=== PATIENT | female | born 1955 | race African-American/Black ===

== ENCOUNTER 2020-01-14 22:59 | Emergency (ER) | payer OTHER ==
[~2020-01-14] VITALS: Ht 160 cm; Wt 68.0 kg
[2020-01-14 23:46] LABS: ABSOLUTE NEUTROPHILS 2.8 thou/uL (1.4-8.2); BASOPHILS 1.1 % (0.0-2.0); EOSINOPHILS 1.4 % (0.0-3.0); HEMATOCRIT 38.9 % (37.0-47.0); HEMOGLOBIN 12.6 gm/dL (12.0-15.0); LYMPHOCYTES 38.7 % (24.0-44.0); MCH 27.9 pg (26.0-34.0); MCHC 32.4 g/dL (28.0-37.0); MCV 86.1 fL (80.0-100.0); MONOCYTES 8.6 % (1.0-8.0); PLATELET COUNT 276 thou/uL (150-400); POLYS 50.2 % (36.0-66.0); RBC 4.52 mil/uL (4.20-5.00); RDW 14.7 % (10.5-14.5); WBC 5.6 thou/uL (4.0-11.0)
[2020-01-14 23:50] LABS: CREATININE 1.1 mg/dL (0.6-1.0); MAGNESIUM 2.3 mg/dL (1.8-2.4); POTASSIUM 3.9 mmol/L (3.5-5.1)
[2020-01-15 00:25] LABS: URINE BILIRUBIN NEGATIVE (Negative); URINE BLOOD NEGATIVE (Negative); URINE CLARITY CLEAR; URINE COLOR YELLOW; URINE GLUCOSE-RANDOM* NEGATIVE (Negative); URINE KETONES NEGATIVE (Negative); URINE NITRITE-REFLEX NEGATIVE (Negative); URINE PROTEIN (DIPSTICK) NEGATIVE (Negative); URINE SPECIFIC GRAVITY 1.025 (1.005-1.035); URINE UROBILINOGEN 0.2 E.U./dl (0.2-1.0)
[2020-01-15 00:27] LABS: URINE LEUKOCYTES-REFLEX 1+ (Negative)
[2020-01-15 00:34] LABS: BACTERIA-REFLEX 1-9 Few /HPF (None Seen); CASTS None Seen /LPF (None Seen); CRYSTALS None Seen /LPF (None Seen); MUCUS 0-3 Light strn/LPF (None Seen); SQUAMOUS 0-3 Few /LPF (0-3); URINE RBC 0-2 Rare /HPF (0-2)
[2020-01-15 01:06] VITALS: BP 194/79
--- NOTE | 2020-01-15 07:42 | EKG ---
[facility] [place] [place] [address] ELECTROCARDIOGRAM REPORT Name: ELIO LYMAN Room #: DEP [facility]#: [id number] Admission: 01/14/20 Attend Phys: Discharge: 01/15/20 Date of : 57 Report #: [id number] THIS REPORT FOR: cc: NO FAMILY PHYSICIAN or PCP NO FAMILY PHYSICIAN or PCP Santos Linda MD ~ THIS REPORT FOR: //name// [facility] ED Test Date: 2020-01-14 Test Time: 23:20:23 Pat Name: ELIO LYMAN Department: Room: Gender: F [employer]: : [id number] Requested By: Junaid Grewal Order Number: [id number] MD: Santos Linda Measurements Intervals [place] Rate: 91 P: 57 LA: 175 QRS: 61 QRSD: 110 T: 215 QT: 367 QTc: 452 Interpretive Statements Sinus rhythm LVH with IVCD and secondary repol abnrm Anterior ST elevation, probably due to LVH No previous ECG available for comparison Electronically Signed On 01-15-2020 7:41:27 CDT by Santos Linda [email or web address] <ELECTRONICALLY SIGNED> By: Santos Linda MD 01/15/20 0741 19 19 Santos Linda MD /EPI
== END 2020-01-15 01:07 | disposition home or self-care (01) ==
LOC: ER 22:59
PROVIDERS: Emergency Medicine
DX: I10 Essential (primary) hypertension (principal); R60.0 Localized edema; M54.9 Dorsalgia, unspecified; Z88.1 Allergy status to other antibiotic agents